=== PATIENT | female | born 1965 | race Caucasian/White ===

== ENCOUNTER 2018-03-24 10:03 | Outpatient (CLI) | payer OTHER | END 2018-03-24 10:04 | LOC: POD 10:03 | PROVIDERS: ATTEND Podiatrist Public Medicine | DX: M21.42 Flat foot [pes planus] (acquired), left foot (principal); M21.41 Flat foot [pes planus] (acquired), right foot; M79.672 Pain in left foot; M79.671 Pain in right foot; L84 Corns and callosities; S90.112A Contusion of left great toe without damage to nail, initial encounter; X58.XXXA Exposure to other specified factors, initial encounter; Y92.9 Unspecified place or not applicable; Y93.9 Activity, unspecified; Y99.9 Unspecified external cause status | CPT/HCPCS: 99213 ==